=== PATIENT | male | born 1985 | race Caucasian/White ===

== ENCOUNTER 2021-09-27 16:45 | Outpatient (CLI) | payer OTHER, SELFPAY ==
[2021-09-27 17:31] LABS: Post Vasectomy Sperm Presence None Seen (None Seen)
== END 2021-09-27 16:46 | disposition home or self-care (01) ==
PROVIDERS: PCP Family Medicine; Visit Provider Family Medicine
DX: Z31.41 Encounter for fertility testing (principal)
CPT/HCPCS: 88160; 89321